=== PATIENT | female | born 1955 | race Caucasian/White ===

== ENCOUNTER 2018-04-24 12:23 | Observation (INO) | payer OTHER, MEDICAID, SELFPAY ==
--- NOTE | 2018-04-24 | DI.MRI.S_ITS ---
PROCEDURE: MR ANGIO NECK W CON INDICATIONS: TIA? Cervical radicolopathy TECHNIQUE: Axial and sagittal TruFISP through the neck. Coronal dynamic MRA after the administration of contrast in the arterial and venous phases, with rotating 3-dimensional maximum intensity projection (MIP) reformats constructed from subtraction images. COMPARISON: None. FINDINGS: Image quality: Limited by patient motion artifact. Carotid system: Great vessels demonstrate a conventional anatomy as they arise from the aortic arch. The origins of the common carotid arteries appear normal. The calibers and courses of the common carotid arteries are likewise normal. The right internal carotid artery is fully patent. Atherosclerotic irregularity noted in the origin of the left internal carotid artery which causes moderate, approximately 50-60% stenosis of the vessel. There is normal flow in the left internal carotid artery distal to the origin. Posterior circulation: The origins of the vertebral arteries are poorly visualized due to motion artifact and cannot be evaluated. The more superior portions of the vertebral arteries demonstrate normal course and caliber. Vertebral arteries join to form a normal appearing basilar artery. Miscellaneous: Subclavian arteries are patent throughout. Pre-contrast images through the neck demonstrate no soft tissue abnormalities. IMPRESSION: 1. 50-60% stenosis of the origin of left internal carotid artery. 2. Right internal carotid artery is fully patent. 3. Origins of the vertebral arteries are poorly visualized due to motion artifact and cannot be evaluated. Well-visualized portions of the vertebral arteries are fully patent. Any quantitative measurements of stenosis were performed using NASCET criteria. Dictated by: Jacqui Woodson MD, PhD on 04/24/2018 at 16:51 Approved by: Jacqui Woodson MD, PhD on 04/24/2018 at 16:55
--- NOTE | 2018-04-24 | DI.MRI.S_ITS ---
PROCEDURE: MR ANGIO HEAD WO CON INDICATIONS: RIGHT HAND NUMBNESS TECHNIQUE: Noncontrast axial 3-D [id number] MR angiogram, with 3-dimensional maximum intensity projection (MIP) reformats of the internal carotid arteries and posterior circulation then performed. COMPARISON: [facility], MR, MR ANGIO NECK W CON, 04/24/2018, 16:15. [facility], CT, CT HEAD/BRAIN WO CON, 04/24/2018, 13:02. FINDINGS: Image quality: Excellent. Anterior circulation: Intracranial internal carotid arteries demonstrate normal size and intraluminal flow signal. The flow within the paired anterior cerebral arteries is normal and symmetric. The flow within the middle cerebral arteries is normal and symmetric. The anterior communicating artery is seen. No stenoses, occlusions, or aneurysms. Posterior circulation: Visualized portions of the vertebral arteries demonstrate normal caliber, and join to form a normal appearing basilar artery. The flow within the posterior cerebral arteries is normal and symmetric. No stenoses, occlusions, or aneurysms. IMPRESSION: Normal MR angiogram of the head. Dictated by: Jacqui Woodson MD, PhD on 04/24/2018 at 16:47 Approved by: Jacqui Woodson MD, PhD on 04/24/2018 at 16:51
[2018-04-24 12:33] VITALS: BP 150/96; PULSE 91; RESP 18; TEMP 37; O2SAT 94
--- NOTE | 2018-04-24 12:37 | ED.EXTPRO ---
HPI - Extremity Problem <CESAR Ackerman - Last Filed: 04/24/18 21:53> General Chief complaint: Extremity Problem,Nontraumatic Stated complaint: HAS NO CONTROL OF RIGHT HAND Time Seen by Provider: 04/24/18 12:30 Source: patient Mode of arrival: ambulatory Limitations: no limitations History of Present Illness HPI Narrative: 62-year-old female here for complaint of having tingling to her right upper extremity from the distal forearm into the hand over the past couple of days. She also reports that she has had some shoulder pain as well. She denies any trauma to her neck or to her right shoulder. She is ambulatory into the emergency room. She does state that she did have a headache last week. However this has resolved. She denies any fevers or chills. No nausea or vomiting. She states that her symptoms of her paresthesias to her right extremity are worse when she raises her right arm above 90?. No other concerns or complaints MD Complaint: other Related Data Previous Rx's Medication Instructions Recorded aspirin 325 mg PO DAILY #30 tab 04/25/18 atorvastatin 40 mg PO DAILY #30 tab 04/25/18 gabapentin 300 mg PO BID #60 cap 04/25/18 lisinopril 5 mg PO DAILY #30 tab 04/25/18 nicotine 21 mg pe/day TOPICAL DAILY #14 each 04/25/18 Allergies Allergy/AdvReac Type Severity Reaction Status Date / Time No Known Drug Allergies Allergy Verified 04/24/18 12:52 Review of Systems <CESAR Ackerman - Last Filed: 04/24/18 21:53> Constitutional Denies chills, Denies fever(s), Denies lethargy and Denies weakness Eyes Denies change in vision, Denies eye discharge, Denies irritation and Denies loss of vision ENT Ears, Nose, Mouth, and Throat: Denies change in voice, Denies neck pain and Denies sore throat Cardiovascular Denies chest pain, Denies irregular heart rhythm, Denies lightheadedness, Denies palpitations, Denies dyspnea, Denies dyspnea on exertion and Denies orthopnea Respiratory Denies cough, Denies dyspnea, Denies dyspnea on exertion and Denies wheezing Gastrointestinal Gastrointestinal: Denies abdominal pain, Denies change in bowel habits, Denies diarrhea, Denies nausea and Denies vomiting Genitourinary Denies hematuria, Denies flank pain, Denies urinary incontinence and Denies urinary urgency Musculoskeletal Denies neck pain Comments: Tingling and involuntary twitching of the right hand Integumentary/Breasts Denies pruritus, Denies erythema, Denies rash and Denies wounds Neurologic Denies confusion, Denies loss of vision and Denies weakness Psychiatric Denies anxiety, Denies confusion, Denies depression, Denies homicidal ideation and Denies suicidal ideation Endocrine Denies palpitations Hematologic/Lymphatic Denies easy bruising Allergic/Immunologic Denies wheezing Exam <CESAR Ackerman - Last Filed: 04/24/18 21:53> Initial Vital Signs Initial Vital Signs: Vital Signs Temperature 98.6 F 04/24/18 12:33 Pulse Rate 91 H 04/24/18 12:33 Respiratory Rate 18 04/24/18 12:33 Blood Pressure 150/96 H 04/24/18 12:33 Pulse Oximetry 94 04/24/18 12:33 Const General: cooperative and well developed Nutritional Appearance: well nourished Orientation: alert, awake, oriented x3 and not confused HENNV Mouth: oral mucosae normal, oropharynx normal and moist mucous membranes Teeth and gingiva: dentition normal Throat: posterior oropharynx normal Eyes General: appearance normal, both eyes and all related structures Eyelids: eyelids normal Conjunctivae: conjunctivae normal Sclera: sclerae normal Pupils: PERRL (PERRLA to her right eye. 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 Slight variations to EOM to left eye not new finding) and No nystagmus Neck Neck: normal visual inspection, full ROM, trachea midline, No lymphadenopathy, No midline deformity and No JVD Lymphatic: No lymphedema Resp Effort & Inspection: normal respiratory effort, able to speak in complete sentences, no respiratory distress and no use of accessory muscles Auscultation: clear to auscultation bilaterally, no rales, no rhonchi and no wheezes Cardio Rate: regular rate Rhythm: regular rhythm Heart Sounds: no click, no gallops, no murmurs and no rubs Pulses: normal peripheral pulses Skin General: no rashes or lesions noted, No jaundice and No petechiae Neuro General: alert, awake, oriented x3, CN's II-XI intact bilaterally and deep tendon reflexes 2+ bilaterally Cranial Nerves: No nystagmus Cognition: normal cognition Speech: speech normal Gait: normal gait Motor: muscle tone normal throughout Sensory Exam: no sensory deficits noted Extrem Other: Right upper extremity with no signs of trauma. No swelling no ecchymosis. Distal sensation is intact. Distal range of motion is intact. With extension of right arm paresthesias are subjectively reported as increasing. Involuntary twitching of the right hand also increases with raising of the right arm. <Foreign Gonzales MD - Last Filed: 05/19/18 15:09> Initial Vital Signs Initial Vital Signs: Vital Signs Temperature 98.6 F 04/24/18 12:33 Pulse Rate 91 H 04/24/18 12:33 Respiratory Rate 18 04/24/18 12:33 Blood Pressure 150/96 H 04/24/18 12:33 Pulse Oximetry 94 04/24/18 12:33 Scores <CESAR Ackerman - Last Filed: 04/24/18 21:53> ABCD2 Age >= 60 years: yes Initial BP. Either SBP >= 140 or DBP >= 90.: yes Clinical features of the TIA: speech disturbance without weakness Duration of symptoms: < 10 minutes History of diabetes: no ABCD2 Score: 3 NIH Stroke Scale Level of Conciousness: Alert, keenly responsive Ask month/age: Answers both questions correctly. Open/close eyes, close hand: Performs both tasks correctly Best gaze horizontal: Normal Visual hutchison: No visual loss Facial palsy: Normal symetrical movement Left arm drift: No drift for full 10 sec Right arm drift: No drift for full 10 sec Left leg drift: No drift for full 10 sec Right leg drift: No drift for full 10 sec Limb ataxia: Absent Sensory on face/arms/legs: Normal, no sensory loss Best language: No aphasia, normal Dysarthria: Normal Extinction or inattention: No abnormality Total NIH Stroke scale score: 0 Course <CESAR Ackerman - Last Filed: 04/24/18 21:53> Orders Ordered: Discontinued Medications Acetaminophen (Tylenol) 650 mg PO Q6HR PRN PRN Reason: As Needed for Fever/Mild Pain Hydrocodone Bitart/Acetaminophen (Dubois 5/325) 1 tab PO Q4HR PRN PRN Reason: Pain, Moderate (4-6) Albuterol/Ipratropium (Duoneb) 3 ml INH RTQ6HR PRN PRN Reason: Shortness Of Breath Aspirin (Aspirin Ec) 81 mg PO DAILY [facility] Atorvastatin Calcium (Lipitor) 40 mg PO BEDTIME [facility] Enoxaparin Sodium (Lovenox) 40 mg SUBCUT DAILY [facility] Last Admin: 04/25/18 09:43 Dose: 40 mg Lisinopril (Zestril) 10 mg PO DAILY [facility] Lisinopril (Zestril) 5 mg PO DAILY [facility] Last Admin: 04/25/18 09:44 Dose: 5 mg Morphine Sulfate (Morphine) 1 mg IV Q4HR PRN PRN Reason: Pain, Moderate (4-6) Naloxone HCl (Narcan) 0.2 mg IV Q2MIN PRN PRN Reason: Opiate Reversal Nicotine (Nicoderm) 21 mg TOP DAILY [facility] Last Admin: 04/25/18 09:44 Dose: Not Given Nitroglycerin (Nitrostat) 0.3 mg SL [id number] [facility] Last Admin: 04/24/18 19:13 Dose: Not Given Nitroglycerin (Nitrostat) 0.3 mg SL [id number] PRN PRN Reason: Chest Pain Ondansetron HCl (Zofran) 4 mg IV Q8HR PRN PRN Reason: Nausea And Vomiting Sodium Chloride (Normal Saline 0.9% Flush) 10 ml IV BID [facility] Last Admin: 04/25/18 09:44 Dose: 10 ml Sodium Chloride (Normal Saline 0.9% Flush) 10 ml IV PRN PRN PRN Reason: Flush Vital Signs - 8 hr 04/24/18 16:40 04/24/18 19:25 04/24/18 20:22 Temperature 97.7 F 98.6 F Pulse Rate 95 H 80 93 H Respiratory Rate 17 16 16 Blood Pressure 153/91 H 132/69 H Pulse Oximetry 96 95 96 <Foreign Gonzales MD - Last Filed: 05/19/18 15:09> Orders Ordered: Discontinued Medications Acetaminophen (Tylenol) 650 mg PO Q6HR PRN PRN Reason: As Needed for Fever/Mild Pain Hydrocodone Bitart/Acetaminophen (Dubois 5/325) 1 tab PO Q4HR PRN PRN Reason: Pain, Moderate (4-6) Albuterol/Ipratropium (Duoneb) 3 ml INH RTQ6HR PRN PRN Reason: Shortness Of Breath Aspirin (Aspirin Ec) 81 mg PO DAILY [facility] Atorvastatin Calcium (Lipitor) 40 mg PO BEDTIME [facility] Enoxaparin Sodium (Lovenox) 40 mg SUBCUT DAILY [facility] Last Admin: 04/25/18 09:43 Dose: 40 mg Lisinopril (Zestril) 10 mg PO DAILY [facility] Lisinopril (Zestril) 5 mg PO DAILY [facility] Last Admin: 04/25/18 09:44 Dose: 5 mg Morphine Sulfate (Morphine) 1 mg IV Q4HR PRN PRN Reason: Pain, Moderate (4-6) Naloxone HCl (Narcan) 0.2 mg IV Q2MIN PRN PRN Reason: Opiate Reversal Nicotine (Nicoderm) 21 mg TOP DAILY [facility] Last Admin: 04/25/18 09:44 Dose: Not Given Nitroglycerin (Nitrostat) 0.3 mg SL [id number] [facility] Last Admin: 04/24/18 19:13 Dose: Not Given Nitroglycerin (Nitrostat) 0.3 mg SL [id number] PRN PRN Reason: Chest Pain Ondansetron HCl (Zofran) 4 mg IV Q8HR PRN PRN Reason: Nausea And Vomiting Sodium Chloride (Normal Saline 0.9% Flush) 10 ml IV BID [facility] Last Admin: 04/25/18 09:44 Dose: 10 ml Sodium Chloride (Normal Saline 0.9% Flush) 10 ml IV PRN PRN PRN Reason: Flush Vital Signs - 8 hr 04/24/18 16:40 04/24/18 19:25 04/24/18 20:22 Temperature 97.7 F 98.6 F Pulse Rate 95 H 80 93 H Respiratory Rate 17 16 16 Blood Pressure 153/91 H 132/69 H Pulse Oximetry 96 95 96 MDM - Extremity (Nontraumatic) <CESAR Ackerman - Last Filed: 04/24/18 21:53> Lab Data Result diagrams: 04/25/18 05:04 04/25/18 05:04 Lab Results 04/24/18 04/24/18 04/24/18 Range/Units 13:40 13:53 13:53 WBC 9.7 (4.5-11.0) X10^3/uL RBC 4.98 (4.0-5.2) X10^6/uL Hgb 15.3 (12.0-16.0) g/dL Hct 45.3 (36-46) % MCV 90.8 (80-100) fL MCH 30.6 (26-34) PG MCHC 33.7 (30-36) % RDW 13.6 (11.6-14.8) % Plt Count 394 (150-400) X10^3/uL Neut % (Auto) 66.4 (50-75) % Lymph % (Auto) 24.8 L (25-40) % Rusk % (Auto) 6.5 (3-14) % Eos % (Auto) 0.9 L (2-4) % Baso % (Auto) 1.4 (0-2) % Neut # (Auto) 6400 H (5356-7129) /uL PT 12.4 (10.1-12.7) SECONDS INR 1.1 (0.9-1.3) Sodium 145 (137-145) mmol/L Potassium 4.1 (3.4-5.1) mmol/L Chloride 106 (98-107) mmol/L Carbon Dioxide 30 (22-32) mmol/L BUN 12 (7-17) mg/dL Creatinine 0.70 (0.52-1.04) mg/dL Estimated GFR > 60.0 (>60) mL/min BUN/Creatinine Ratio 17.1 (6-22) Glucose 109 (80-110) mg/dL Calcium 9.2 (8.4-10.2) mg/dL Magnesium (1.6-2.3) mg/dL Total Bilirubin 0.6 (0.2-1.3) mg/dL AST 18 (14-36) IU/L ALT 25 (9-52) IU/L Alkaline Phosphatase 93 (38-126) U/L Total Creatine Kinase 49 (30-135) U/L Troponin I < 0.012 (0.01-0.034) ng/mL Total Protein 7.1 (6.3-8.2) g/dL Albumin 4.2 (3.5-5.0) g/dL Globulin 2.9 (1.7-4.1) g/dL Albumin/Globulin Ratio 1.4 (1.0-2.8) TSH (0.47-4.68) uIU/mL 04/24/18 04/25/18 04/25/18 Range/Units 13:53 05:04 05:04 WBC 10.0 (4.5-11.0) X10^3/uL RBC 4.63 (4.0-5.2) X10^6/uL Hgb 14.2 (12.0-16.0) g/dL Hct 42.7 (36-46) % MCV 92.2 (80-100) fL MCH 30.8 (26-34) PG MCHC 33.4 (30-36) % RDW 13.5 (11.6-14.8) % Plt Count 362 (150-400) X10^3/uL Neut % (Auto) 47.8 L (50-75) % Lymph % (Auto) 40.8 H (25-40) % Rusk % (Auto) 7.8 (3-14) % Eos % (Auto) 2.1 (2-4) % Baso % (Auto) 1.5 (0-2) % Neut # (Auto) 4800 (4527-9225) /uL PT (10.1-12.7) SECONDS INR (0.9-1.3) Sodium 140 (137-145) mmol/L Potassium 4.4 (3.4-5.1) mmol/L Chloride 104 (98-107) mmol/L Carbon Dioxide 29 (22-32) mmol/L BUN 15 (7-17) mg/dL Creatinine 0.70 (0.52-1.04) mg/dL Estimated GFR > 60.0 (>60) mL/min BUN/Creatinine Ratio 21.4 (6-22) Glucose 101 (80-110) mg/dL Calcium 8.6 (8.4-10.2) mg/dL Magnesium 1.7 (1.6-2.3) mg/dL Total Bilirubin (0.2-1.3) mg/dL AST (14-36) IU/L ALT (9-52) IU/L Alkaline Phosphatase (38-126) U/L Total Creatine Kinase (30-135) U/L Troponin I (0.01-0.034) ng/mL Total Protein (6.3-8.2) g/dL Albumin (3.5-5.0) g/dL Globulin (1.7-4.1) g/dL Albumin/Globulin Ratio (1.0-2.8) TSH 1.80 (0.47-4.68) uIU/mL Imaging Data CT scan - head: Radiologist's impression: PROCEDURE: CT HEAD/BRAIN WO CON INDICATIONS: Paresthesias and twitching into right hand TECHNIQUE: Noncontrast 4.5 mm thick angled axial sections acquired from the foramen magnum to the vertex, with coronal and sagittal reformats. For radiation dose reduction, the following was used: automated exposure control, adjustment of mA and/or kV according to patient size. COMPARISON: None. FINDINGS: Image quality: Excellent. CSF spaces: Basal cisterns are patent. No extra-axial fluid collections. Ventricles are normal in size and shape. Brain: No midline shift. No intracranial masses or hemorrhage. Nolasco-white matter interface is normal. Skull and face: Calvarium and visualized facial bones are intact, without suspicious lesions. Sinuses: Visualized sinuses and mastoids are clear. IMPRESSION: No acute intracranial disease process. Dictated by: Jacqui Woodson MD, PhD on 04/24/2018 at 13:15 Approved by: Jacqui Woodson MD, PhD on 04/24/2018 at 13:21 [facility] Narrative Medical decision making narrative: Signs and symptoms of her right arm paresthesias and twitching are suspicious for cervical radiculopathy/stenosis recommend referral for MRI for further evaluation. CBC Chem panel were obtained were unremarkable. TSH was obtained and was also unremarkable. While waiting for lab results patient reported that she had. CT of the head was also obtained was negative for any acute findings.. While she was waiting that she had difficulty speaking and formulating words. She also felt that she was disoriented for a short period of time and is felt like she could not move her tongue. She states that this lasted for approximately 30 sec then resolved. Signs and symptoms are concerning for TIA. Cardiac enzymes were that point ordered and were negative. EKG shows sinus rhythm with no ST elevation or depression. No ectopy. INR was obtained and was negative. Discussed case with hospitalist who accepted patient for further evaluation and treatment for TIA. <Foreign Gonzales MD - Last Filed: 05/19/18 15:09> Lab Data Lab Results 04/24/18 04/24/18 04/24/18 Range/Units 13:40 13:53 13:53 WBC 9.7 (4.5-11.0) X10^3/uL RBC 4.98 (4.0-5.2) X10^6/uL Hgb 15.3 (12.0-16.0) g/dL Hct 45.3 (36-46) % MCV 90.8 (80-100) fL MCH 30.6 (26-34) PG MCHC 33.7 (30-36) % RDW 13.6 (11.6-14.8) % Plt Count 394 (150-400) X10^3/uL Neut % (Auto) 66.4 (50-75) % Lymph % (Auto) 24.8 L (25-40) % Rusk % (Auto) 6.5 (3-14) % Eos % (Auto) 0.9 L (2-4) % Baso % (Auto) 1.4 (0-2) % Neut # (Auto) 6400 H (1620-0357) /uL PT 12.4 (10.1-12.7) SECONDS INR 1.1 (0.9-1.3) Sodium 145 (137-145) mmol/L Potassium 4.1 (3.4-5.1) mmol/L Chloride 106 (98-107) mmol/L Carbon Dioxide 30 (22-32) mmol/L BUN 12 (7-17) mg/dL Creatinine 0.70 (0.52-1.04) mg/dL Estimated GFR > 60.0 (>60) mL/min BUN/Creatinine Ratio 17.1 (6-22) Glucose 109 (80-110) mg/dL Calcium 9.2 (8.4-10.2) mg/dL Magnesium (1.6-2.3) mg/dL Total Bilirubin 0.6 (0.2-1.3) mg/dL AST 18 (14-36) IU/L ALT 25 (9-52) IU/L Alkaline Phosphatase 93 (38-126) U/L Total Creatine Kinase 49 (30-135) U/L Troponin I < 0.012 (0.01-0.034) ng/mL Total Protein 7.1 (6.3-8.2) g/dL Albumin 4.2 (3.5-5.0) g/dL Globulin 2.9 (1.7-4.1) g/dL Albumin/Globulin Ratio 1.4 (1.0-2.8) TSH (0.47-4.68) uIU/mL 04/24/18 04/25/18 04/25/18 Range/Units 13:53 05:04 05:04 WBC 10.0 (4.5-11.0) X10^3/uL RBC 4.63 (4.0-5.2) X10^6/uL Hgb 14.2 (12.0-16.0) g/dL Hct 42.7 (36-46) % MCV 92.2 (80-100) fL MCH 30.8 (26-34) PG MCHC 33.4 (30-36) % RDW 13.5 (11.6-14.8) % Plt Count 362 (150-400) X10^3/uL Neut % (Auto) 47.8 L (50-75) % Lymph % (Auto) 40.8 H (25-40) % Rusk % (Auto) 7.8 (3-14) % Eos % (Auto) 2.1 (2-4) % Baso % (Auto) 1.5 (0-2) % Neut # (Auto) 4800 (2668-0503) /uL PT (10.1-12.7) SECONDS INR (0.9-1.3) Sodium 140 (137-145) mmol/L Potassium 4.4 (3.4-5.1) mmol/L Chloride 104 (98-107) mmol/L Carbon Dioxide 29 (22-32) mmol/L BUN 15 (7-17) mg/dL Creatinine 0.70 (0.52-1.04) mg/dL Estimated GFR > 60.0 (>60) mL/min BUN/Creatinine Ratio 21.4 (6-22) Glucose 101 (80-110) mg/dL Calcium 8.6 (8.4-10.2) mg/dL Magnesium 1.7 (1.6-2.3) mg/dL Total Bilirubin (0.2-1.3) mg/dL AST (14-36) IU/L ALT (9-52) IU/L Alkaline Phosphatase (38-126) U/L Total Creatine Kinase (30-135) U/L Troponin I (0.01-0.034) ng/mL Total Protein (6.3-8.2) g/dL Albumin (3.5-5.0) g/dL Globulin (1.7-4.1) g/dL Albumin/Globulin Ratio (1.0-2.8) TSH 1.80 (0.47-4.68) uIU/mL Discharge Plan Departure Patient Disposition: Admitted As Inpatient Clinical Impression: Arm paresthesia, right, Brain TIA Discharge Date/Time: 04/24/18 16:38 Interventions: ED Discharge Assessment Last Done: 04/24/18 16:38 Admit Date/Time: 04/24/18 15:54 Admit Provider: Livia Felix <Foreign Gonzales MD - Last Filed: 05/19/18 15:09> Cosign ED Attending Cosignature Attestation: The PA/SPIRAL BINDER functioned independently for the care of this pt, I was available, but not asked to participate in care. I am unable to determine appropriateness of management without personally examining the pt.
--- NOTE | 2018-04-24 13:11 | DI.CT.S_ITS ---
PROCEDURE: CT HEAD/BRAIN WO CON INDICATIONS: Paresthesias and twitching into right hand TECHNIQUE: Noncontrast 4.5 mm thick angled axial sections acquired from the foramen magnum to the vertex, with coronal and sagittal reformats. For radiation dose reduction, the following was used: automated exposure control, adjustment of mA and/or kV according to patient size. COMPARISON: None. FINDINGS: Image quality: Excellent. CSF spaces: Basal cisterns are patent. No extra-axial fluid collections. Ventricles are normal in size and shape. Brain: No midline shift. No intracranial masses or hemorrhage. Nolasco-white matter interface is normal. Skull and face: Calvarium and visualized facial bones are intact, without suspicious lesions. Sinuses: Visualized sinuses and mastoids are clear. IMPRESSION: No acute intracranial disease process. Dictated by: Jacqui Woodson MD, PhD on 04/24/2018 at 13:15 Approved by: Jacqui Woodson MD, PhD on 04/24/2018 at 13:21
[2018-04-24 14:00] LABS: Add Manual Diff / Slide Review NO; Basophils Percent Auto 1.4 % (0-2); Eosinophils Percent Auto 0.9 % (2-4); Hematocrit 45.3 % (36-46); Hemoglobin 15.3 g/dL (12.0-16.0); Lymphocytes Percent Auto 24.8 % (25-40); Mean Corpuscular HGB Conc 33.7 % (30-36); Mean Corpuscular Hemoglobin 30.6 PG (26-34); Mean Corpuscular Volume 90.8 fL (80-100); Monocytes Percent Auto 6.5 % (3-14); Neutrophils Absolute Auto 6400 /uL (3000-5900); Neutrophils Percent Auto 66.4 % (50-75); Platelet Count 394 X10^3/uL (150-400); Red Blood Cell Count 4.98 X10^6/uL (4.0-5.2); Red Cell Distribution Width 13.6 % (11.6-14.8); White Blood Cell Count 9.7 X10^3/uL (4.5-11.0)
[2018-04-24 14:13] LABS: Alanine Aminotransferase 25 IU/L (9-52); Albumin 4.2 g/dL (3.5-5.0); Albumin Globulin Ratio 1.4 (1.0-2.8); Alkaline Phosphatase 93 U/L (38-126); Aspartate Aminotransferase 18 IU/L (14-36); BUN Creatinine Ratio 17.1 (6-22); Bilirubin Total 0.6 mg/dL (0.2-1.3); Blood Urea Nitrogen 12 mg/dL (7-17); Calcium 9.2 mg/dL (8.4-10.2); Carbon Dioxide 30 mmol/L (22-32); Chloride 106 mmol/L (98-107); Estimated Glomerular Filt Rate > 60.0 mL/min (>60); Globulin 2.9 g/dL (1.7-4.1); Glucose 109 mg/dL (80-110); HEMOLYSIS < 15 (0-50); Potassium 4.1 mmol/L (3.4-5.1); Sodium 145 mmol/L (137-145); Total Protein 7.1 g/dL (6.3-8.2)
--- NOTE | 2018-04-24 14:16 | DI.RAD.S_ITS ---
PROCEDURE: XR CHEST 1V INDICATIONS: Temporary decrease use of tongue and speaking TECHNIQUE: One view of the chest was acquired. COMPARISON: None. FINDINGS: Surgical changes and devices: None. Lungs and pleura: No pleural effusions or pneumothorax. Lungs are clear. Mediastinum: Mediastinal contours appear normal. Heart size is normal. Bones and chest wall: No suspicious bony lesions. Overlying soft tissues appear unremarkable. IMPRESSION: No acute cardiopulmonary disease. Dictated by: Josy Tse M.D. on 04/24/2018 at 15:18 Approved by: Josy Tse M.D. on 04/24/2018 at 15:18
[2018-04-24 14:31] LABS: INR 1.1 (0.9-1.3); Prothrombin Time 12.4 SECONDS (10.1-12.7)
[2018-04-24 14:37] LABS: Creatine Kinase 49 U/L (30-135)
[2018-04-24 14:52] LABS: Troponin I < 0.012 ng/mL (0.01-0.034)
--- NOTE | 2018-04-24 15:56 | PC.NURSE ---
assumed care, pt denies further sx, speech baseline per pt/friend, no tremor present
[2018-04-24 16:40] VITALS: BP 153/91; PULSE 95; RESP 17; TEMP 36.5; O2SAT 96
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
[2018-04-24 19:25] VITALS: BP 132/69; PULSE 80; RESP 16; TEMP 37; O2SAT 95
[2018-04-24 20:22] VITALS: PULSE 93; RESP 16; O2SAT 96
--- NOTE | 2018-04-24 20:23 | RT ---
BRONCHODILATOR NOT NEEDED AT THIS TIME.
[2018-04-25 01:33] VITALS: BP 143/92; PULSE 98; RESP 20; TEMP 36.7; O2SAT 94
--- NOTE | 2018-04-25 01:58 | PC.NURSE ---
Addendum entered by Nelly Wells R.N. 04/25/18 06:49: Slept most of shift. Continues to have tremor/weakness in right UE but denies tingling in face or arm. Denies pain. Original Note: Patient is alert and oriented; denies any tingling/numbness of face or right UE but does have tremor in right UE which she states was new upon admission. Is blind in left eye which is chronic. Breath sounds are CTA with RA sat of 94%. HRR and was ST on 0000 telemetry reading but now with rate of 98 bpm. BP elevated at 143/92; has Lisinopril ordered for a.m. Denies nausea. BT present and abdomen is soft. Denies dysuria, frequency, urgency or incontinence. Independent with mobility. Has chronic right shoulder pain but declines pain meds, heat or ice. Fall risk score is medium but no bed alarm is being used at this time.
[2018-04-25 04:12] VITALS: BMI 32.5
[2018-04-25 04:15] VITALS: BP 129/73; PULSE 88; RESP 18; TEMP 36.4; O2SAT 92
[2018-04-25 06:50] LABS: Add Manual Diff / Slide Review NO; BUN Creatinine Ratio 21.4 (6-22); Basophils Percent Auto 1.5 % (0-2); Blood Urea Nitrogen 15 mg/dL (7-17); Calcium 8.6 mg/dL (8.4-10.2); Carbon Dioxide 29 mmol/L (22-32); Chloride 104 mmol/L (98-107); Eosinophils Percent Auto 2.1 % (2-4); Estimated Glomerular Filt Rate > 60.0 mL/min (>60); Glucose 101 mg/dL (80-110); HEMOLYSIS 39 (0-50); Hematocrit 42.7 % (36-46); Hemoglobin 14.2 g/dL (12.0-16.0); Lymphocytes Percent Auto 40.8 % (25-40); Magnesium 1.7 mg/dL (1.6-2.3); Mean Corpuscular HGB Conc 33.4 % (30-36); Mean Corpuscular Hemoglobin 30.8 PG (26-34); Mean Corpuscular Volume 92.2 fL (80-100); Monocytes Percent Auto 7.8 % (3-14); Neutrophils Absolute Auto 4800 /uL (3000-5900); Neutrophils Percent Auto 47.8 % (50-75); Platelet Count 362 X10^3/uL (150-400); Potassium 4.4 mmol/L (3.4-5.1); Red Blood Cell Count 4.63 X10^6/uL (4.0-5.2); Red Cell Distribution Width 13.5 % (11.6-14.8); Sodium 140 mmol/L (137-145)
[2018-04-25 07:52] VITALS: BP 124/80; PULSE 80; RESP 17; TEMP 36.8; O2SAT 93
[2018-04-25 08:00] VITALS: O2SAT 100
--- NOTE | 2018-04-25 09:09 | OT.IP.EVAL ---
Current Diagnoses Anesthesia of skin (04/24/18) Past Medical History (Last Updated 04/24/18 @ 17:49 by Livia Felix MD) COPD with emphysema (Acute) Chronic neck pain (Acute) Fibromyalgia (Acute) Hypertension (Acute) Nerve damage (Acute) Nicotine addiction (Acute) Occupational Therapy Inpatient Evaluation/Re-Eval M1 PT/OT-IP Prior Functional Status Start: 04/25/18 15:03 Freq: NEEDED Status: Active Protocol: Document 04/25/18 09:09 AVANI (Rec: 04/25/18 15:20 [facility] [id number]) Medical Review Prior Functional Status Medical History Reviewed Yes Diet/Fluid Consistency Regular Communication WNL Mobility and Gait Independent without a device Activities of Daily Living and IADL's Independent with all self care , IADLS, except does not drive . Family provides transport. Prior Functional Level (Other details) Her sister does most of grocery shopping. Pt does her own cooking, cleaning, laundry , manages her finances. She states she does not currently take any prescription medications. Social History Household Members family Living Arrangements House Number of Floors (Floors) 3 or More Floors Number of Stairs To Enter/Railing? 4 stairs to enter and full flight to her upstairs room Home Environment Standard Height Toilet Tub/Shower Home Equipment Hand Held Shower Additional Social History Comment Pt does not use any DME at home. Pt lives with her mother and 4 siblings. Pt unemployed x 20 yrs. Siblings do not work per pt. M2 OT-IP Current Condition Start: 04/25/18 15:03 Freq: Status: Active Protocol: Document 04/25/18 09:09 AVANI (Rec: 04/25/18 15:20 [facility] [id number]) Occupational Therapy Current Condition Current Condition Evaluation Date 04/25/18 Treatment Diagnosis assess ability to return home after episode of R hand tremors Diagnosis Onset Date 04/24/18 M3 OT- IP Subjective and Pain Start: 04/25/18 15:03 Freq: Status: Active Protocol: Document 04/25/18 09:09 MARY (Rec: 04/25/18 15:20 [facility] [id number]) OT- Subjective Occupational Therapy Visit Type Type Initial Evaluation Visit Start Time 08:45 Visit Stop Time 09:09 Total Visit Minutes 24 Occupational Therapy Visit Comments Patient Comments My hand is better today. Patient/Caregiver Goals to find out why R hand was shaking, to go home OT Pain Assessment Pain When Pain Assessed After Treatment Pain Present Pain Present Pain Reported Location Right Shoulder Intensity 5 Scale Used chronic pain M4 OT- IP ADL's Start: 04/25/18 15:03 Freq: Status: Active Protocol: Document 04/25/18 09:09 PJ (Rec: 04/25/18 15:20 [facility] [id number]) OT [id number] General Evaluation Self-Feeding Ability Independent Comments OT Self-Feeding Comments Pt states she used R hand to hold utensil and cup. No spilling noted. OT ADL-Grooming General Evaluation Grooming Ability Independent Areas Needing Assistance Combing/Brushing Hair Face Washing Comments OT Grooming Comments standing at sink OT ADL-Oral Care General Eval Oral Care Ability Independent Areas of Assistance Brushing Teeth Devices Oral Care Devices Toothbrush Comments Oral Care Comments standing at sink OT ADL-Dressing General Eval Upper Body Dressing Ability Independent Lower Body Dressing Ability Independent OT ADL-Toileting General Evaluation Toileting Ability Independent OT ADL-Bathing Comments OT Bathing Comments Pt declined to shower here. No new deficits identified that would interfere. M5 OT- IP IADL's Start: 04/25/18 15:03 Freq: Status: Active Protocol: Document 04/25/18 09:09 PJ (Rec: 04/25/18 15:20 [facility] [id number]) OT-Instrumental Activities of Daily Living Deficits IADL Deficits Identified No Deficits Home Safety Awareness Awareness of Need for Assistance at Home Good Awareness Ability to Problem Solve Emergency Able to Problem Solve Situations Medication Management Medication Management Comments Pt takes no prescription meds at present. Money Management Money Management No Deficits Identified Meal Preparation Meal Preparation No Deficits Identified Road Cleaner Road Cleaner No Deficits Identified Driving Driving Caregiver Provides Assist Driving Comments family provides transport M6 OT- IP Functional Cognition Start: 04/25/18 15:03 Freq: Status: Active Protocol: Document 04/25/18 09:09 PJ (Rec: 04/25/18 15:20 [facility] [id number]) Cognitive Factors Limiting Selfcare Function Cognitive Ability Level of Alertness Alert Patient Orientation Name Age Birthday Month Date Year Day of Week Place Situation Attention Span Ability Capable of Focused Attention Capable of Sustained Attention Ability to Follow Commands Able to Follow One Step Commands Able to Follow Multi-Step Commands Memory Description No Deficits Noted Safety Awareness No Deficits Noted Problem Solving Ability No deficits Noted Cognitive Comments Cognitive Assessment Comments No new functional cognition deficits identified. OT- Vision and Hearing OT- Hearing Assessment OT- Hearing Assessment WFL OT- Vision Assessment Visual Acuity WFL No Vision Aides At Hospital Visual Attentiveness WFL Occular Pursuits WFL Visual Arnold WFL Vision Assessment Comments Note pt blind in L eye since . No new vision deficits identified. Pt rarely uses her glasses for distance. M7 OT- IP Mobility and Balance Start: 04/25/18 15:03 Freq: Status: Active Protocol: Document 04/25/18 09:09 PJ (Rec: 04/25/18 15:20 [facility] [id number]) OT- Bed Mobility Assessment Rolling Type of Rolling Roll to Right Level of Assistance Independent Supine to Sit Supine to Sit Assist Independent Sit to Supine Sit to Supine Assist Independent Scooting Scooting to Edge of Bed Independent Scooting Up and Down in Bed Independent OT-Transfer Assessment Sit to and From Stand Sit to and from Stand Independent Transfers Transfer Ability Independent Technique Transfer Destination Chair Toilet Devices Transfer Assistive Devices None OT- Gait Assessment Gait Gait Assistance Required: Independent Comments Gait Ability Comments Pt up in room ad carlene without a device OT- Balance Assessment Sitting Balance and Reactions Static Sitting Balance Ability Normal Dynamic Sitting Balance Ability Normal Standing Balance and Reactions Static Standing Balance Ability Normal Dynamic Standing Balance Ability Normal Comments Other Balance Tests/Deviations/Treatment NO LOB during functional tasks : standing at sink or during lower body clothing management . M8 OT- IP Objective Assessments Start: 04/25/18 15:03 Freq: Status: Active Protocol: Document 04/25/18 09:09 PJ (Rec: 04/25/18 15:20 [facility] [id number]) OT Gross Range of Motion Upper Extremity Range of Motion Assessment Within Functional Limits OT Strength Upper Extremity Strength Assessment Within Functional Limits Comments Strength Comments No focal deficits identified OT- Coordination Assessment Upper Extremity Finger to Nose Test Within Functional Limits Finger Tapping Test Within Functional Limits Comments Coordination Comments No tremors noted this session in R hand. Pt using R hand dominantly for all self care tasks with no functional deficits identified. All prehension patterns present and functional. OT-Muscle Tone Assessment Muscle Tone WNL Yes Comments Muscle Tone Comments Pt has complete isolated movement at all joints RUE/ hand. OT Sensation Assessment Location Right Hand Light Touch Impaired Comments Summary Comments Pt has impaired light touch sensation in median nerve distribution of R hand and tingling in ulnar nerve distribution due to old lacerations to wrist and lower forearm. Pt denies any recent changes in R hand sensation. Edema Edema Absent M9 OT- IP Assessment and Plan Start: 04/25/18 15:03 Freq: Status: Active Protocol: Document 04/25/18 09:09 MARY (Rec: 04/25/18 15:20 [facility] [id number]) OT Summary Assessment and Plan Potential Rehabilitation Potential Good Analytic Complexity at Evaluation Low Summary Assessment Summary Low complexity OT assessment completed. No new deficits identified in vision, cognition, or BUE sensorimotor function. Pt independent with self care tasks and ambulation in room without a device. No R hand tremors noted this session. No OT goals identified for this admission. Anticipate pt will return home with multiple family members when medically stable. Frequency of Treatment Frequency Of Treatment Discharge Treatment Plan Other Treatment Recommendations and Next No OT services needed. Treatment Focus Discharge Recommendations OT Discharge Recommendations Home
[2018-04-25] MEDS: ENOXAPARIN 40 MG/0.4 ML SYRINGE SUBCUT (09:43)
[2018-04-25 09:44] VITALS: BP 124/80; PULSE 79
[2018-04-25] MEDS: LISINOPRIL 5 MG TABLET PO (09:44)
[2018-04-25] MEDS: SODIUM CHLORIDE 0.9% FLUSH 10 ML IV (09:44)
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
--- NOTE | 2018-04-25 10:43 | PT.IPTN ---
Current Diagnoses Anesthesia of skin (04/24/18) Physical Therapy Order received. Chart reviewed. Occupational Therapy saw pt this AM and reports pt is back to baseline. Pt ambulated into ED and has had no changes in her gait. No skilled Physical Therapy needs identified at this time. Will discharge Physical Therapy at this time.
--- NOTE | 2018-04-25 12:06 | PC.NURSE ---
Discharge Note: Pt given discharge instructions for TIA, stroke, lisinopril, gabapentin and atorvastatin. Also given discharge instructions for follow up appointment, diet and activity. Strongly encouraged to quit smoking and follow medication regimen as ordered. Pt's sister at bedside and discussion involved both patient and sister. Pt's IV removed without incident. Pt eating lunch. To be discharged via wheelchair to front entry when pt is done eating.
--- NOTE | 2018-04-26 10:16 | CM.DANOTE ---
Addendum entered by Jacqueline Crane LPN 04/26/18 10:25: UR Team does sent clinical updates to [facility] and thus their care management team will know to reach out to pt re this as per their protocol. Original Note: Addendum entered by Jacqueline Crane LPN 04/26/18 10:23: A check in today shows that pt was able to d/c home right after lunch and d/c specifics were covered in detail by RN caring for pt and with the inclusion of pt's sister. Smoking cessation was encouraged and [facility] does have programs to assist their clients in this endeavor. Original Note: Discharge Planning/Care Management DCP: assessment: LATE ENTRY: for 04/25: 0815 Case received and met with pt at 0815. Introduced self and role. Pt is a 62 year old female who admitted to care of hospitalist team late afternoon 04/24. Payer : [facility]/Medicaid. PCP: she says she has been assigned a provider at the [facility] (pt lives in [place]) but that she has not yet made an initial appt. She says this event is a warning to her that she needs to do that right away. Pt noted that her hand was better but holds it out and says she still does not have full control and hand noted to be moving a bit erratically. Discussed case with DR. Mike in 929 Team Meeting. He planned further workup and with caution that pt would need to followup in the outpt setting [facility]. CM Discharge Assessment Start: 04/26/18 10:15 Freq: Status: Active Protocol: Document 04/26/18 10:15 ITV (Rec: 04/26/18 10:16 ITV [id number]) Discharge Planning Assessment Advance Directives? No Advance Directives on File No History Provided By Patient Medical Record Prior Living Arrangements House Household Members family Comment lives with sister Sivan Independent with ADL's Yes Is patient alert and oriented? Yes Whiteboard Updated in Patient Room with Yes name and ext. # of Cardiopulmonary Physical Therapist Review Status In Process Next Review Type Continued Stay Review
== END 2018-04-25 12:00 | disposition home or self-care (01) ==
LOC: ED 15:52 → AC 04-25 07:17
PROVIDERS: Admitting Provider Hospitalist; Emergency Provider Nurse Practitioner Family; Visit Provider Hospitalist
DX: R20.0 Anesthesia of skin (principal); F17.210 Nicotine dependence, cigarettes, uncomplicated; J44.9 Chronic obstructive pulmonary disease, unspecified; I10 Essential (primary) hypertension; E78.5 Hyperlipidemia, unspecified; M54.2 Cervicalgia; M79.7 Fibromyalgia
CPT/HCPCS: 36415; 36592; 70450; 70544; 70548; 71045; 80048; 80053; 82550; 82553; 82962; 83735; 84443; 84484; 85025; 85610; 93005; 93010; 97165; 99282; 99285; 99406; G0378; A9579; J1650